=== PATIENT | male | born 1930 | race Caucasian/White ===

== ENCOUNTER 2017-09-20 22:34 | Emergency (ER) | payer OTHER ==
[~2017-09-20] VITALS: Ht 165.1 cm; Wt 62.7 kg
[2017-09-21] MEDS ORDERED: ULTRAM50 MG PO (00:58)
[2017-09-21 01:16] VITALS: BP 187/85
== END 2017-09-21 01:16 | disposition home or self-care (01) ==
LOC: EME 22:34
DX: M25.522 Pain in left elbow (principal); Z95.1 Presence of aortocoronary bypass graft
CPT/HCPCS: 73080; 93971; 99281; 99283